=== PATIENT | male | born 1985 | race Caucasian/White ===

== ENCOUNTER 2023-08-09 16:31 | Emergency (ER) | payer SELFPAY ==
[2023-08-09] MEDS ORDERED: Bupivacaine PF 0.5% 30 ML VIAL ONE (17:48)
[2023-08-09] MEDS ORDERED: Boostrix 0.5 ML (Tdap) VIAL (>/=7 yrs of age) ONE (17:48)
[2023-08-09] MEDS ORDERED: Bacitracin 1 PK ONE (20:13)
== END 2023-08-09 20:30 | disposition home or self-care (01) ==
LOC: ERS 16:31
DX: S61.214A Laceration without foreign body of right ring finger without damage to nail, initial encounter (principal); Z87.891 Personal history of nicotine dependence; Z23 Encounter for immunization; X58.XXXA Exposure to other specified factors, initial encounter
CPT/HCPCS: 12044; 90471; 90715; S0020

== ENCOUNTER 2023-08-24 11:33 | Emergency (ER) | payer SELFPAY | END 2023-08-24 12:05 | disposition home or self-care (01) | LOC: ERS 11:33 | DX: S61.214D Laceration without foreign body of right ring finger without damage to nail, subsequent encounter (principal); X58.XXXD Exposure to other specified factors, subsequent encounter ==